=== PATIENT | female | born 1960 | race Caucasian/White ===

== ENCOUNTER → 2021-12-26 14:39 | Outpatient (REF) | payer OTHER, SELFPAY | LOC: ANHLAB 14:39 | PROVIDERS: PCP Nurse Practitioner Adult Health; Visit Provider Nurse Practitioner | DX: R22.2 Localized swelling, mass and lump, trunk (principal) | CPT/HCPCS: 88304 ==

== ENCOUNTER → 2023-09-30 16:07 | Outpatient (REF) | payer OTHER, SELFPAY | LOC: ANHLAB 16:07 | PROVIDERS: PCP Nurse Practitioner Adult Health; Visit Provider Plastic Surgery | DX: C44.619 Basal cell carcinoma of skin of left upper limb, including shoulder (principal); L57.8 Other skin changes due to chronic exposure to nonionizing radiation | CPT/HCPCS: 88305 ==

== ENCOUNTER 2024-12-25 14:21 | Emergency (ER) | payer OTHER, SELFPAY ==
[2024-12-25 14:30] VITALS: BP 95/85; PULSE 94; RESP 16; TEMP 36.4; O2SAT 97
--- NOTE | 2024-12-25 14:57 | ED_ITS ---
HPI - Nausea/Vomiting/Diarrhea General Chief complaint: Nausea/Vomiting/Diarrhea Stated complaint: Nausea Time Seen by Provider: 12/25/24 14:44 Source: patient and RN notes reviewed Mode of arrival: ambulatory Limitations: no limitations History of Present Illness HPI Narrative: Patient presents today with a 2 day history of dry heaving and nausea as well as some mild insomnia. Denies vomiting, fever, diarrhea, constipation, abdominal pain. She has been able to keep down bit of food today and states her symptoms are slightly better this afternoon than they were earlier this morning. This is her 3rd episode of nausea and insomnia this year and believes it is due to anxiety. States she has become very anxious due to some family coming into town. She has tried nothing [id number] for her symptoms prior to arrival. Related Data Home Medications ?Medication ?Instructions ?Recorded ?Confirmed ?Last Taken ?Type calcium carbonate [Calcium 500] PO 11/16/21 09/30/23 Unknown History dapsone [Aczone] topical 11/16/21 09/30/23 Unknown History ivermectin [Soolantra] topical 11/16/21 09/30/23 Unknown History rosuvastatin 5 mg tablet 5 mg PO DAILY 09/09/23 09/30/23 Unknown History Allergies Allergy/AdvReac Type Severity Reaction Status Date / Time No Known Allergies Allergy Verified 12/25/24 14:35 [facility] Past Medical History Medical History History of Mohs micrographic surgery for skin cancer Thyroid disease Overweight (BMI 25.0-29.9) (06/13/16) Basal cell carcinoma of right lower leg Family History Family History Mother Hypertension Father Malignant neoplasm of prostate Bladder cancer Social History Social History Smoking status: Never smoker Alcohol intake: current Do You Feel Safe in your Home?: Yes Lack of Transportation: No Lack of Food: Never True Current Housing: I Have Housing Concerned About Future Housing: No Difficulty Paying Gas/Electric Bills: No Difficulty Paying for Meds: No Currently Unemployed: No Education: High School Diploma/GED Difficulty w/ Childcare or Family Care: No Comments At time of signature, I have reviewed and agree with nursing past medical, surgical, social and family history unless otherwise noted. Please see nursing chart for further information. There is no relevant family history pertinent to the presenting complaint Exam Narrative: GENERAL: Well-appearing, well-nourished, and in no acute distress. HEAD: Normocephalic, atraumatic. EYES: EOMI. No redness or drainage. Conjunctivae normal. ENT: Mucous membranes pink and moist. Throat normal. Uvula midline. NECK: Normal AROM. Supple. No lymphadenopathy. CHEST: No respiratory distress. Clear to auscultation. HEART: Regular rate and rhythm. No murmur appreciated. Normal peripheral pulses. ABDOMEN: Soft, nontender, nondistended, normal active bowel sounds. EXTREMITIES: Normal range of motion. No edema. SKIN: Warm, dry, no rash. Capillary refill normal. Normal skin turgor. NEURO: No focal deficits. Alert and oriented x3. Gait steady. PSYCH: Normal affect. No signs of depression or anxiety. Course Course Level of Care: Express Care Visit Vital Signs Vital signs: Vital Signs Temperature 97.6 F 12/25/24 14:30 Pulse Rate 94 12/25/24 14:30 Respiratory Rate 16 12/25/24 14:30 Blood Pressure 95/85 L 12/25/24 14:30 Pulse Oximetry 97 12/25/24 14:30 Temperature 97.6 F 12/25/24 14:30 Pulse Rate 94 12/25/24 14:30 Respiratory Rate 16 12/25/24 14:30 Blood Pressure 95/85 L 12/25/24 14:30 Pulse Oximetry 97 12/25/24 14:30 Reviewed MDM - Nausea/Vomiting/Diarrhea MDM Narrative Medical decision making narrative: 64-year-old female with history high cholesterol presents with a 2 day history of nausea, dry heaving, and insomnia that she believes is due to anxiety. This is her 3rd episode in this year with same symptoms. She has been able to eat some food today. Denies vomiting or any additional symptoms. Prescription for Zofran sent to pharmacy to help manage her symptoms. Recommend PCP follow-up fo r evaluation of her anxiety and nausea symptoms. Vital signs stable. Patient agrees with plan. Anticipatory guidance given. Differential Diagnosis Differential diagnosis: Likely other Critical Care Time Critical Care Time Critical Care Time: No Discharge Plan Discharge Clinical Impression: Nausea Patient Disposition: Home Condition: Stable Instructions: Acute Nausea and Vomiting (DC) Additional Instructions: Please take the Zofran as prescribed. Stay with bland foods and advance as tolerated. Make sure your staying hydrated as well. Follow-up with your PCP n ext week for further evaluation of your symptoms. Go to the ER immediately if you start vomiting or develops any additional symptoms to include fever, abdominal pain. Patient Language: Japanese Prescriptions: New ondansetron 4 mg tablet,disintegrating 4 mg PO Q4-6H PRN (Reason: nausea and vomiting) Qty: 15 0RF No Action dapsone [Aczone] topical calcium carbonate [Calcium 500] PO ivermectin [Soolantra] topical rosuvastatin 5 mg tablet 5 mg PO DAILY Follow-up/Referrals: Jennifer,Taylor Frazier, ARTIST AGENT [Primary Care Provider] - Time of Disposition: 15:03
== END 2024-12-25 15:06 | disposition home or self-care (01) ==
PROVIDERS: Emergency Provider Nurse Practitioner
DX: R11.0 Nausea (principal); Z85.828 Personal history of other malignant neoplasm of skin
CPT/HCPCS: 99213; G0463